=== PATIENT | female | born 1990 | race Caucasian/White ===

== ENCOUNTER 2017-03-16 19:40 | Emergency (ER) | payer MEDICAID ==
--- NOTE | 2017-03-16 20:07 | Emergency Department Record ---
History of Present Illness - General Chief Complaint: Laceration(s) Stated Complaint: LACERATION Time Seen by Provider: 03/16/17 20:03 Source: Patient Mode of Arrival: Ambulatory Limitations: No limitations - History of Present Illness Initial Commments: 26 yo female presents to ED for evaluation of laceration sustained during a crush injury while at work. Patient reports injury to the right middle finger resulting in laceration. Patient denies other injury, denies health problems at her baseline, and reports that her tetanus was updated in 2014. Onset/Timin -: Minutes(s) Location: Other Extremity Location: Right: Hand Place: Work Context: Accidental Associated Symptoms: None Treatments Prior to Arrival: Bandage, NSAIDS Treatment Prior to Arrival Comment:: motrin 600 around 1730 - Prabhu Coma Scale Eye Response: (4) Open spontaneously Motor Response: (6) Obeys commands Verbal Response: (5) Oriented Prabhu Total: 15 - Related Data Hx Tetanus Toxoid Vaccination: Yes Year of Tetanus Vaccination: 2015 Patient Tetanus UTD (within 5 yrs): Yes Home Medications Medication Instructions Recorded Confirmed Last Taken Buspirone HCl [Buspar] 5 mg PO DAILY 03/16/17 03/16/17 03/16/17 Lorazepam [Ativan] 0.5 mg PO ASDIR PRN 03/16/17 03/16/17 03/12/17 Omeprazole 40 mg PO DAILY 03/16/17 03/16/17 03/16/17 Allergies Allergy/AdvReac Type Severity Reaction Status Date / Time No Known Drug Allergies Allergy Verified 03/16/17 19:50 Travel Screening - Travel/Exposure Within Last 30 Days Have you traveled within the last 30 days?: No - Travel/Exposure Within Last Year Have you traveled outside the [place] in the last year?: No - Additonal Travel Details Have you been exposed to anyone with a communicable illness?: No - Travel Symptoms Symptom Screening: None Review of Systems Constitutional: Denies: Chills, Fever, Malaise, Night sweats Eyes: Denies: Eye discharge, Eye pain ENT: Denies: Congestion, Ear pain, Epistaxis Respiratory: Denies: Cough, Dyspnea Cardiovascular: Denies: Chest pain, Dyspnea on exertion Endocrine: Denies: Fatigue, Heat or cold intolerance Gastrointestinal: Denies: Abdominal pain, Nausea, Vomiting Genitourinary: Denies: Incontinence, Retention Musculoskeletal: Reports: Arthralgia. Denies: Back pain, Gout, Joint swelling Skin: Reports: Other (finger laceration). Denies: Bruising, Change in color, Change in hair/nails Neurological: Denies: Abnormal gait, Confusion, Headache, Seizure Psychiatric: Reports: Anxiety Hematological/Lymphatic: Denies: Anemia, Blood Clots Past Medical History - SOCIAL HISTORY Smoking Status: Current every day smoker Alcohol Use: Rare Drug Use: None - RESPIRATORY Hx Respiratory Disorders: No - CARDIOVASCULAR Hx Cardio Disorders: No - NEURO Hx Neuro Disorders: No - GI Hx GI Disorders: Yes Hx Reflux: Yes - Hx Genitourinary Disorders: No - ENDOCRINE Hx Endocrine Disorders: No - MUSCULOSKELETAL Hx Musculoskeletal Disorders: No - PSYCH Hx Psych Problems: Yes Hx Anxiety: Yes - HEMATOLOGY/ONCOLOGY Hx Hematology/Oncology Disorders: No Family Medical History Any Significant Family History?: No Physical Exam - General General Appearance: Alert, Oriented x3, Cooperative, Mild distress, Anxious Limitations: No limitations - Head Head exam: Atraumatic, Normocephalic, Normal inspection Head exam detail: negative: Abrasion, Contusion, Olivia's sign, General tenderness, Hematoma, Laceration - Eye Eye exam: Normal appearance. negative: Conjunctival injection, Periorbital swelling, Periorbital tenderness, Scleral icterus - ENT Ear exam: negative: Auricular hematoma, Auricular trauma Nasal Exam: negative: Active bleeding, Discharge, Dried blood, Foreign body Mouth exam: negative: Drooling, Laceration, Tongue elevation - Neck Neck exam: Normal inspection. negative: Meningismus, Tenderness - Respiratory Respiratory exam: Normal lung sounds bilaterally. negative: Rales, Respiratory distress, Rhonchi, Stridor - Cardiovascular Cardiovascular Exam: Regular rate, Normal rhythm, Normal heart sounds - GI/Abdominal GI/Abdominal exam: Soft. negative: Rebound, Rigid, Tenderness - Rectal Rectal exam: Deferred - exam: Deferred - Extremities Extremities exam: Tenderness, Other (TTP over the distal right middle digit resulting from a 1.5 cm linear laceration, bleeding controlled, FROM against resistance at the DIP with flexion and extension.). negative: Calf tenderness, Pedal edema - Back Back exam: Denies: CVA tenderness (R), CVA tenderness (L) - Neurological Neurological exam: Alert, Normal gait, Oriented X3 - Psychiatric Psychiatric exam: Anxious - Skin Skin exam: Normal color. negative: Abrasion Type of lesion: negative: abrasion Course Vital Signs 03/16/17 19:52 Temperature 98.8 F Pulse Rate 96 H Respiratory 16 Rate Blood Pressure 122/79 Pulse Ox 96 - Reevaluation(s) Reevaluation #1: 03/16/17 20:33 Procedure Note: Right middle finger laceration measuring 1.5 cm was anesthetized with 0.25 Sensorcaine 1.0 mL with good anesthesia via digital block. Wound was scrubbed extensively with Hibiclens solution, no FBs identified. Wound was then repaired using 4-0 Prolene sutures using interrupted fashion, (4) sutures placed with good hemostasis and cosmesis. Patient tolerated the procedure well without complications. Reevaluation #2: 03/16/17 21:29 Right middle finger: No fracture present, no radio-opaque FB present. Patient was updated on all results, laceration has been repaired, and the patient appears stable for discharge at this time. Disposition Disposition: Discharge Clinical Impression: Finger laceration Qualifiers: Encounter type: initial encounter Finger: middle finger Damage to nail status: without damage Foreign body presence: without foreign body Laterality: right Qualified Code(s): S61.212A - Laceration without foreign body of right middle finger without damage to nail, initial encounter Disposition: Home, Self-Care Condition: (2) Stable Instructions: Laceration (ED) Additional Instructions: Return to ED if your symptoms worsen or if you have any concerns. Sutures out in 10-14 days. Follow-up with your family doctor in 5-7 days as directed. Forms: Patient Portal Access Time of Disposition: 21:29 Quality - Quality Measures Quality Measures: N/A - Blood Pressure Screening Does Patient Have Any of the Following: No Blood Pressure Classification: Pre-Hypertensive BP Reading Systolic Measurement: 122 Diastolic Measurement: 79 Screening for High Blood Pressure: < Pre-Hypertensive BP, F/U Documented > [ [id number]] Pre-Hypertensive Follow-up Interventions: Referral to alternative/primary care provider.
--- NOTE | 2017-03-17 19:53 | RADIOLOGY REPORT ---
EXAM: FINGER(S), RIGHT HISTORY: CRUSH INJURY AND LACERATION TO THE MIDDLE FINGER. TECHNIQUE: Three views of the right middle finger were obtained. COMPARISON: None. FINDINGS: There is soft tissue swelling and laceration along the distal aspect of the finger. There is no associated fracture or foreign body. There is no dislocation. IMPRESSION: 1. SOFT TISSUE SWELLING AND LACERATION DISTALLY. 2. NO FRACTURE OR FOREIGN BODY. JOB NUMBER: [id number] MTDD
== END 2017-03-16 21:55 | disposition home or self-care (01) ==
LOC: ER 19:40
DX: S61.212A Laceration without foreign body of right middle finger without damage to nail, initial encounter (principal); W23.0XXA Caught, crushed, jammed, or pinched between moving objects, initial encounter; Y99.0 Civilian activity done for income or pay
CPT/HCPCS: 12041; 73140; 99283; 99284